=== PATIENT | female | born 1975 | race Caucasian/White ===

== ENCOUNTER 2018-05-13 16:24 | Observation (INO) | payer MEDICAID ==
[~2018-05-13] VITALS: Ht 172.7 cm; Wt 98.0 kg
[2018-05-13] MEDS ORDERED: PREN-170 PO (16:29)
[2018-05-13 17:31] LABS: BASOPHILS % 0.3 % (0.0-2.0); EOSINOPHILS % 1.4 % (0.0-5.0); HEMATOCRIT. 30.7 % (36.0-48.0); HEMOGLOBIN. 10.1 g/dL (12.0-16.0); LYMPHOCYTES % 16.4 % (20.0-50.0); MEAN CORPUSCULAR HEMOGLOBIN 30.4 pg (28.0-32.0); MEAN CORPUSCULAR VOLUME 92.6 fL (81.0-99.0); MEAN PLATELET VOLUME 8.4 fl (7.4-10.4); MONOCYTES % 7.4 % (2.0-8.0); NEUTROPHILS % 74.5 % (40.0-76.0); PLATELET 284 x1000/uL (130-400); RED BLOOD CELL COUNT 3.31 mill/uL (4.2-5.4)
[2018-05-13 17:35] LABS: CHLORIDE 107 mEq/L (98-107)
[2018-05-13 17:59] LABS: B-HCG QUANTITATIVE 9310 mIU/mL (<3)
[2018-05-13] MEDS ORDERED: RHO(D) IMMUNE GLOBULIN 300 MCG/SYR IM ONE (18:45)
[2018-05-13 21:51] VITALS: BP 161/88
[2018-05-13] MEDS ORDERED: LACTATED RINGERS 1,000 ML IV ONE (23:15)
[2018-05-13] MEDS: ACETAMINOPHEN 325MG TABLET PO PRN (23:30)
[2018-05-14] MEDS: ACETAMINOPHEN 325MG TABLET PO PRN ×2 (04:50→11:01)
== END 2018-05-14 18:10 | disposition home or self-care (01) ==
LOC: ER 16:24 → 8 EST LDRP 23:08 → INTOOBSV 23:08
PROVIDERS: ADMIT Obstetrics & Gynecology; ATTEND Obstetrics & Gynecology
DX: O46.92 Antepartum hemorrhage, unspecified, second trimester (principal); O32.1XX0 Maternal care for breech presentation, not applicable or unspecified; O16.2 Unspecified maternal hypertension, second trimester; O60.02 Preterm labor without delivery, second trimester; Z3A.20 20 weeks gestation of pregnancy
CPT/HCPCS: 36415; 76805; 80048; 84702; 85025; 86850; 86900; 86901; 90384; 96372; 99281; G0378; 96374; 96375; 99285